=== PATIENT | male | born 1990 | race African-American/Black ===

== ENCOUNTER 2017-06-22 10:17 | Emergency (ER) | payer OTHER ==
[~2017-06-22 10:17] MED LIST: IBUP800T23 PO
[2017-06-22 10:21] VITALS: BP 131/61; PULSE 69; RESP 16; TEMP 97.8; O2SAT 98
--- NOTE | 2017-06-22 10:52 | RADRPT ---
EXAM DATE/TIME: 06/22/2017 10:46 [place] COMPARISON: No previous studies available for comparison. INDICATIONS : Chest pain MEDICAL HISTORY : None. SURGICAL HISTORY : None. ENCOUNTER: Initial ACUITY: 2 weeks PAIN SCORE: 7/10 LOCATION: chest FINDINGS: PA and lateral views of the chest demonstrate the lungs to be symmetrically aerated without evidence of mass, infiltrate or effusion. The cardiomediastinal contours are unremarkable. Osseous structure s are intact. CONCLUSION: No acute cardiopulmonary process. Jason Rodrigez MD on June 22, 2017 at 10:51 Board Certified Radiologist. This report was verified electronically.
[2017-06-22] MEDS ORDERED: FLUT1SPR5 EACH NARE (11:32)
--- NOTE | 2017-06-22 11:51 | PD ---
HPI Chief Complaint: Chest Pain Time Seen by Provider: 11:22 Travel History International Travel<30 days: No Contact w/Intl Traveler<30days: No Traveled to known affect area: No History of Present Illness HPI This patient complains of allergy issues. 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 He denies cough or fever. He is not short of breath. He does have history of allergic rhinitis. He has Flonase that he uses. Severity is mild at this time [facility] Past Medical History Medical History: Denies Significant Hx Diminished Hearing: No Immunizations Current: Yes Tetanus Vaccination: Unknown Influenza Vaccination: Yes Past Surgical History Surgical History: No Previous Surgery Social History Alcohol Use: Yes (occ ) Tobacco Use: No Substance Use: No Allergies-Medications (Allergen,Severity, Reaction): Coded Allergies: No Known Allergies (Unverified , 06/22/17) Reported Meds & Prescriptions Reported Meds & Active Scripts Active Reported Flonase Nasal Anderson (Fluticasone Nasal Anderson) 50 Mcg/Act Anderson 50 Mcg EACH NARE BID Review of Systems General / Constitutional: No: Fever HENT: Positive: Congestion, No: Headaches Gastrointestinal: No: Abdominal Pain Physical Exam Narrative GENERAL: Well-nourished, well-developed patient in no apparent distress. SKIN: Focused skin assessment reveals no rash and nodules. Skin is Warm and dry. HEAD: Atraumatic. Normocephalic. EYES: Pupils equal and round. No scleral icterus. No injection or drainage. ENT: No nasal bleeding or discharge. Mucous membranes pink and moist. NECK: Trachea midline. No JVD. CARDIOVASCULAR: Regular rate and rhythm. No murmur appreciated. RESPIRATORY: No accessory muscle use. Clear to auscultation. Breath sounds equal bilaterally. GASTROINTESTINAL: Abdomen soft, non-tender, nondistended. Hepatic and splenic margins not palpable. MUSCULOSKELETAL: No obvious deformities. No clubbing. No cyanosis. No edema. NEUROLOGICAL: Awake and alert. No obvious cranial nerve deficits. Motor grossly within normal limits. Normal speech. PSYCHIATRIC: Appropriate mood and affect; insight and judgment normal. Data Data Last Documented VS Vital Signs Date Time Temp Pulse Resp B/P (MAP) Pulse Ox O2 Delivery O2 Flow Rate FiO2 06/22/17 11:33 Room Air 06/22/17 10:21 97.8 69 16 131/61 (84) 98 Orders Orders Electrocardiogram (06/22/17 ) Chest, Pa & Lat (06/22/17 ) MDM Medical Decision Making Medical Screen Exam Complete: Yes Emergency Medical Condition: Yes Medical Record Reviewed: Yes Differential Diagnosis Allergic rhinitis, asthma, pneumonia Narrative Course I have reviewed the patient's electronic medical record. Reviewed his chest x-ray which is normal I reviewed his EKG. There are some abnormalities but this does not represent ACS. He does have inverted T waves in couple of leads. Encouraged to follow-up with primary care Suggested antihistamines but he says he's used them in the past without relief and is not interested in those. Diagnosis Primary Impression: Allergic rhinitis Qualified Codes: J30.9 - Allergic rhinitis, unspecified Additional Instructions: The patient was advised to follow up with their physician and return if they worsen. Med/Other Pt SpecificInfo: Other Disposition: 01 DISCHARGE HOME Condition: Stable Carlos Palencia MD Jun 22, 2017 11:51
--- NOTE | 2017-06-22 13:39 | EKG ---
Date Performed: 06/22/2017 Time Performed: 10:31:12 PTAGE: 27 years EKG: Sinus rhythm POSSIBLE LEFT ATRIAL ENLARGEMENT BORDERLINE ECG NO PREVIOUS TRACING DOCTOR: Sd Horn Interpretating Date/Time 06/22/2017 13:38:12
== END 2017-06-22 12:11 | disposition home or self-care (01) ==
LOC: MERGE 10:17 → NEPD 10:17
DX: J30.9 Allergic rhinitis, unspecified (principal); R07.9 Chest pain, unspecified
CPT/HCPCS: 71046; 93005; 99284